=== PATIENT | female | born 1975 | race Caucasian/White ===

== ENCOUNTER 2023-11-25 09:16 | Day surgery (SDC) | payer BC ==
[2023-11-21 15:08] LABS: BASOPHILS % (AUTO) 0.9 % (0-1); EOSINOPHILS # (AUTO) 0.1 X10'3 (0-0.9); EOSINOPHILS % (AUTO) 2.5 % (0-6); LYMPHOCYTES # (AUTO) 1.2 X10'3 (1.1-4.8); LYMPHOCYTES % (AUTO) 26.9 % (21-51); MEAN CORPUSCULAR HEMOGLOBIN 28.6 PG (27.0-31.0); MEAN CORPUSCULAR HGB CONC 33.1 g/dL (33.0-36.5); MEAN CORPUSCULAR VOLUME 86.2 FL (78-98); MEAN PLATELET VOLUME 6.6 FL (7.4-10.4); MONOCYTES # (AUTO) 0.5 X10'3 (0-0.9); MONOCYTES % (AUTO) 10.7 % (2-12); NEUTROPHILS # (AUTO) 2.7 X10'3 (1.8-7.7); PRE OP HEMATOCRIT 42.9 % (35.0-45.0); PRE OP HEMOGLOBIN 14.2 g/dL (12.0-16.0); PRE OP PLATELET COUNT 267 X10'3 (140-440); PRE OP WHITE BLOOD COUNT 4.6 10'3 (4.8-10.8); RED BLOOD COUNT 4.98 X10'6 (4.20-5.60); RED CELL DISTRIBUTION WIDTH 14.1 % (11.5-14.5)
[2023-11-21 15:23] LABS: PRE OP PROTIME 10.5 SECONDS (9.0-12.0)
[2023-11-21 15:24] LABS: ALBUMIN 3.5 G/DL (3.4-5.0); ALBUMIN/GLOBULIN RATIO 0.8 (1.1-1.5); ALKALINE PHOSPHATASE 106 IU/L (46-116); BLOOD UREA NITROGEN 14 MG/DL (7-18); BUN/CREATININE RATIO 17.1 (10.0-20.0); CALCIUM 8.8 MG/DL (8.5-10.1); CHLORIDE 106 MMOL/L (99-107); CREATININE 0.82 MG/DL (0.40-0.90); PRE OP ALT 19 U/L (30-65); PRE OP ANION GAP 7 (8-16); PRE OP AST 13 U/L (10-37); PRE OP BILIRUB, TOTAL 0.3 MG/DL (0.0-1.0); PRE OP GLUCOSE 97 MG/DL (70-104); PRE OP POTASSIUM 4.1 MMOL/L (3.4-5.1); PRE OP SODIUM 141 MMOL/L (135-145); TOTAL CARBON DIOXIDE 28.4 MMOL/L (24-32); TOTAL PROTEIN 7.7 G/DL (6.4-8.2); eGFR 74 ML/MIN
[~2023-11-25] VITALS: Ht 154.9 cm; Wt 72.8 kg
[2023-11-25] VITALS (11 sets, daily range): BP systolic 117–153; BP diastolic 80–98; PULSE 67–80; RESP 10–16; TEMP 96.8–98.3; O2SAT 97–100
[2023-11-25] MEDS: ringers solution, lacted 1,000 ML IV SCH (05:00)
[2023-11-25] MEDS: cefazolin 2gm/D5W 100mL 100 ML IV ONE (05:30)
[~2023-11-25 09:16] MED LIST: CETI-194 PO; LISI20TA28 PO
[2023-11-25] MEDS: famotidine 20mg tablet PO ONE (10:11)
[2023-11-25] MEDS ORDERED: LIDOcaine 1% 30ml preserv. free vial ONE (10:16)
[2023-11-25] MEDS ORDERED: BUPIVAcaine/PF 2.5mg/ml (0.25%) 10ml vial ONE (10:16)
[2023-11-25] MEDS ORDERED: scopolamine 1MG/72H patch 1 PATCH PATCH.TD.3 TD ONE (10:51)
[2023-11-25] MEDS ORDERED: fentaNYL/PF 50MCG/1 ML 2ML syringe ONE (11:10)
[2023-11-25] MEDS ORDERED: propofol inj 20 ML IV ONE (11:10)
[2023-11-25] MEDS ORDERED: midazolam 1 mg/ML 2ml injection ONE (11:10)
[2023-11-25] MEDS ORDERED: sevoflurane 250ml liquid IH ONE (11:28)
[2023-11-25] MEDS ORDERED: dexamethasone sod phosphate 4mg/ml inj. ONE (11:41)
[2023-11-25] MEDS: LIDOcaine 1% 30ml preserv. free vial IJ ONE (11:55)
[2023-11-25] MEDS ORDERED: ondansetron/PF 4mg/2ml inj IV PRN (12:15)
[2023-11-25] MEDS ORDERED: ringers solution, lacted 1,000 ML IV SCH (12:15)
[2023-11-25] MEDS ORDERED: meperidine/PF 25mg/ml syringe IV PRN ×3 (12:15)
[2023-11-25] MEDS ORDERED: morphine 4 MG/ML inj SYRINge IV PRN (12:15)
[2023-11-25] MEDS ORDERED: proCHLORperazine 10 MG/2 ml inj IV PRN (12:15)
[2023-11-25] MEDS ORDERED: morphine 2 MG/ML inj. syringe IV PRN (12:15)
[2023-11-25] MEDS ORDERED: ondansetron/PF 4mg/2ml inj ONE (13:15)
== END 2023-11-25 14:23 | disposition home or self-care (01) ==
LOC: PAS 09:16
PROVIDERS: ATTEND Surgery
DX: C50.412 Malignant neoplasm of upper-outer quadrant of left female breast (principal); Z90.49 Acquired absence of other specified parts of digestive tract; Z98.890 Other specified postprocedural states; Z98.818 Other dental procedure status; Z86.32 Personal history of gestational diabetes; Z79.899 Other long term (current) drug therapy; Z79.01 Long term (current) use of anticoagulants
CPT/HCPCS: 19301; 36415; 38525; 38900; 80053; 82948; 85025; 85610; 85730; 93005; J0690; J1100; J2250; J2405; J2704; J3010; J3490; J7030; J7120; Z7506; Z7508; Z7512; A4215; A4618; A6449; A7000

== ENCOUNTER 2023-12-16 11:05 | Day surgery (SDC) | payer BC ==
[2023-12-10 16:41] LABS: BASOPHILS # (AUTO) 0.1 X10'3 (0-0.2); BASOPHILS % (AUTO) 1.3 % (0-1); EOSINOPHILS # (AUTO) 0.1 X10'3 (0-0.9); EOSINOPHILS % (AUTO) 2.6 % (0-6); LYMPHOCYTES # (AUTO) 1.7 X10'3 (1.1-4.8); LYMPHOCYTES % (AUTO) 34.7 % (21-51); MEAN CORPUSCULAR HEMOGLOBIN 28.7 PG (27.0-31.0); MEAN CORPUSCULAR HGB CONC 33.5 g/dL (33.0-36.5); MEAN CORPUSCULAR VOLUME 85.5 FL (78-98); MEAN PLATELET VOLUME 6.4 FL (7.4-10.4); MONOCYTES # (AUTO) 0.3 X10'3 (0-0.9); MONOCYTES % (AUTO) 5.6 % (2-12); NEUTROPHILS # (AUTO) 2.8 X10'3 (1.8-7.7); NEUTROPHILS % (AUTO) 55.8 % (42-75); PRE OP HEMATOCRIT 38.8 % (35.0-45.0); PRE OP PLATELET COUNT 296 X10'3 (140-440); RED BLOOD COUNT 4.54 X10'6 (4.20-5.60); RED CELL DISTRIBUTION WIDTH 13.9 % (11.5-14.5)
[2023-12-10 16:57] LABS: PRE OP PROTIME 10.3 SECONDS (9.0-12.0)
[2023-12-10 17:17] LABS: ALBUMIN 3.1 G/DL (3.4-5.0); ALBUMIN/GLOBULIN RATIO 0.8 (1.1-1.5); ALKALINE PHOSPHATASE 111 IU/L (46-116); BLOOD UREA NITROGEN 14 MG/DL (7-18); BUN/CREATININE RATIO 17.1 (10.0-20.0); CALCIUM 8.3 MG/DL (8.5-10.1); CHLORIDE 106 MMOL/L (99-107); CREATININE 0.82 MG/DL (0.40-0.90); PRE OP ALT 44 U/L (30-65); PRE OP ANION GAP 3 (8-16); PRE OP AST 18 U/L (10-37); PRE OP BILIRUB, TOTAL 0.2 MG/DL (0.0-1.0); PRE OP GLUCOSE 110 MG/DL (70-104); PRE OP POTASSIUM 3.6 MMOL/L (3.4-5.1); PRE OP SODIUM 141 MMOL/L (135-145); TOTAL CARBON DIOXIDE 31.8 MMOL/L (24-32); TOTAL PROTEIN 7.2 G/DL (6.4-8.2); eGFR 74 ML/MIN
[~2023-12-16] VITALS: Ht 154.9 cm; Wt 75.0 kg
[2023-12-16] VITALS (10 sets, daily range): BP systolic 123–156; BP diastolic 79–95; PULSE 59–77; RESP 9–16; TEMP 98.3; O2SAT 97–100
[~2023-12-16 11:05] MED LIST changes: +CHEWABLE VITAMIN
[2023-12-16] MEDS ORDERED: propofol inj 20 ML IV ONE (11:52)
[2023-12-16] MEDS ORDERED: LIDOcaine 2% (20mg/ml) 5ml vial ONE (11:52)
[2023-12-16] MEDS: famotidine 20mg tablet PO ONE (12:04)
[2023-12-16] MEDS: ringers solution, lacted 1,000 ML IV SCH (12:04)
[2023-12-16] MEDS: cefazolin 2gm/D5W 100mL 100 ML IV ONE (12:04)
[2023-12-16] MEDS ORDERED: BUPIVAcaine/PF 2.5mg/ml (0.25%) 10ml vial ONE (12:18)
[2023-12-16] MEDS ORDERED: BUPIVAcaine 0.25% w/Epi /PF 30ml vial ONE (12:18)
[2023-12-16] MEDS ORDERED: LIDOcaine 1% 30ml preserv. free vial ONE (12:18)
[2023-12-16] MEDS: scopolamine 1MG/72H patch 1 PATCH PATCH.TD.3 TD ONE (12:29)
[2023-12-16] MEDS ORDERED: sevoflurane 250ml liquid IH ONE (12:33)
[2023-12-16] MEDS ORDERED: fentaNYL/PF 50MCG/1 ML 2ML syringe ONE (12:37)
[2023-12-16] MEDS ORDERED: acetaminophen 1,000mg/100ml IV 100 ML IV ONE (12:37)
[2023-12-16] MEDS ORDERED: midazolam 1 mg/ML 2ml injection ONE (12:37)
[2023-12-16] MEDS ORDERED: ondansetron/PF 4mg/2ml inj ONE (12:38)
[2023-12-16] MEDS ORDERED: dexamethasone sod phosphate 4mg/ml inj. ONE (12:51)
[2023-12-16] MEDS: BUPIVAcaine/PF 2.5mg/ml (0.25%) 10ml vial IJ ONE (13:03)
[2023-12-16] MEDS ORDERED: ondansetron/PF 4mg/2ml inj IV PRN (13:10)
[2023-12-16] MEDS ORDERED: morphine 2 MG/ML inj. syringe IV PRN (13:10)
[2023-12-16] MEDS ORDERED: hydrALAZINE 20mg/ml inj. IV PRN (13:10)
[2023-12-16] MEDS ORDERED: morphine 4 MG/ML inj SYRINge IV PRN (13:10)
[2023-12-16] MEDS ORDERED: proMETHazine 25mg rectal suppository RC PRN (13:10)
[2023-12-16] MEDS ORDERED: proCHLORperazine 10 MG/2 ml inj IV PRN (13:10)
[2023-12-16] MEDS ORDERED: fentaNYL/PF 50MCG/1 ML 2ML syringe IV PRN ×2 (13:10)
[2023-12-16] MEDS ORDERED: ringers solution, lacted 1,000 ML IV SCH (13:10)
[2023-12-16] MEDS ORDERED: labetalol 20mg/4ml (5mg/ml) syringe IV PRN (13:10)
[2023-12-16] MEDS: oxyCODONE/APAP 5-325mg tablet PO ONE (14:22)
== END 2023-12-16 14:30 | disposition home or self-care (01) ==
LOC: PAS 11:05
PROVIDERS: ATTEND Surgery
DX: C50.412 Malignant neoplasm of upper-outer quadrant of left female breast (principal); Z79.01 Long term (current) use of anticoagulants; Z79.899 Other long term (current) drug therapy; Z98.890 Other specified postprocedural states; Z90.49 Acquired absence of other specified parts of digestive tract
CPT/HCPCS: 19301; 36415; 80053; 82948; 85025; 85610; 85730; J0131; J0690; J1100; J2250; J2405; J2704; J3010; J3490; J7030; J7120; Z7506; Z7512; A4215; A4618; A6258; A6449; A7000; S0020